=== PATIENT | male | born 1960 | race Caucasian/White ===

== ENCOUNTER 2021-11-28 13:35 | Emergency (ER) | payer OTHER ==
[~2021-11-28] VITALS: Ht 182.9 cm; Wt 90.7 kg
[~2021-11-28 13:35] MED LIST: COLACE 100 MG100 MG PO; CRESTOR10 MG PO; MULTIVITAMINS; PRILOSEC 20 MG20 MG PO; TOPROL XL50 MG PO; ZETIA10 MG PO
[2021-11-28] MEDS ORDERED: METFORMIN HCL500 M3 PO (13:43)
[2021-11-28 14:16] LABS: INFLUENZA A ANTIGEN Negative (Negative); INFLUENZA B ANTIGEN Negative (Negative)
[2021-11-28 18:29] LABS: ABSOLUTE LYMPHOCYTES 1.1 thou/uL (0.8-5.3); ABSOLUTE MONOCYTES 0.6 thou/uL (0.0-1.2); ABSOLUTE NEUTROPHILS 5.7 thou/uL (1.6-8.1); BASOPHILS 0.4 %; HEMATOCRIT 51.8 % (42.0-52.0); HEMOGLOBIN 17.5 gm/dL (14.0-18.0); LYMPHOCYTES 15.1 %; MCH 27.8 pg (26.0-34.0); MCHC 33.7 g/dL (28.0-37.0); MCV 82.5 fL (80.0-100.0); MONOCYTES 7.6 %; MPV 8.6 fl. (7.2-11.1); NUCLEATED RBCS 0 /100WBC; PLATELET COUNT* 280 thou/uL (150-400); POLYS 76.9 %; RBC 6.28 mil/uL (4.50-6.00); RDW-CV 12.6 % (10.5-14.5); WBC 7.5 thou/uL (4.0-11.0)
[2021-11-28 18:41] LABS: CALCIUM 9.1 mg/dL (8.5-10.1); CREATININE 0.9 mg/dL (0.6-1.3)
[2021-11-28 18:42] LABS: APTT 28.4 Seconds (25.0-31.3); POTASSIUM 4.8 mmol/L (3.5-5.1); PROTIME 10.7 Seconds (9.20-11.50)
[2021-11-28 19:02] LABS: ALBUMIN 3.6 g/dL (3.4-5.0); MAGNESIUM 2.1 mg/dL (1.8-2.4); TOTAL BILIRUBIN 0.5 mg/dL (<0.1-1.0); TOTAL PROTEIN 8.7 g/dL (6.4-8.2)
[2021-11-28 22:16] VITALS: BP 146/85
--- NOTE | 2021-11-29 10:54 | EKG ---
[place] [address] ELECTROCARDIOGRAM REPORT Name: CHELESALOMONVÍCTOR Room: [facility]#: [id number] Admission: 11/28/21 Attend Phys: Discharge: 11/28/21 Date of : 60 Date of Service: 11/28/211820 Report #: [id number] THIS REPORT FOR: //name// [facility] ED Test Date: 2021-11-28 Test Time: 18:21:25 Pat Name: VÍCTOR VELÁSQUEZ Department: Room: Gender: Welder Fabricator: : 1960 Requested By: Rubi Muñoz Order Number: [id number] : Andrews Masters Measurements Intervals [place]ora Rate: 132 P: 46 WA: 97 QRS: 41 QRSD: 92 T: -77 QT: 319 QTc: 473 Interpretive Statements Sinus tachycardia Nonspecific T abnormalities, inferior leads Compared to ECG 02/27/2009 13:59:10 T-wave abnormality now present Sinus rate has increased Electronically Signed On 11-29-2021 10:54:28 [employer] by Anderws Masters [email or web address] <ELECTRONICALLY SIGNED> By: Andrews Masters MD, [facility] 11/29/21 [id number] Andrews Masters MD, [facility] /EPI
== END 2021-11-28 22:19 | disposition home or self-care (01) ==
LOC: M.ERS 13:35
PROVIDERS: Nurse Practitioner; Nurse Practitioner Family
DX: U07.1 COVID-19 (principal); E86.0 Dehydration; I10 Essential (primary) hypertension; E78.00 Pure hypercholesterolemia, unspecified; Z98.890 Other specified postprocedural states; Z79.899 Other long term (current) drug therapy